=== PATIENT | female | born 1985 | race Caucasian/White ===

== ENCOUNTER 2021-12-25 18:12 | Emergency (ER) | payer OTHER, SELFPAY ==
[2021-12-25 18:18] VITALS: BP 128/75; PULSE 77; RESP 18; TEMP 36.6; O2SAT 100
--- NOTE | 2021-12-25 18:25 | ED.SKABFB ---
HPI - Skin/Abscess/Foreign Bdy General Chief complaint: Skin/Abscess/Foreign Body Stated complaint: spider bite on right wrist Time Seen by Provider: 12/25/21 18:26 Source: patient, RN notes reviewed and old records reviewed Mode of arrival: ambulatory Limitations: no limitations History of Present Illness HPI narrative: 36-year-old female who presents to [facility] with complaint of being bit on her right wrist yesterday at around 2am which actually woke her from sleep with pain. Patient has red raised lesion to right wrist area with surrounding 4cm X3cm red area with minimal warmth. Patient states that it was a pustule formation and she put PRID on it and now just red raised bump. Patient denies any fevers, chills or sweats. MD complaint: lesion Tetanus up to date: no Treatments prior to arrival: other (Prid salve and band-aide) Related Data Home Medications Medication Instructions Recorded Confirmed norgestimate 0.25 mg-ethinyl 1 tablet PO DAILY 12/25/21 12/25/21 estradiol 35 mcg tablet (Palmira) omeprazole 20 mg capsule,delayed 20 mg PO DAILY 12/25/21 12/25/21 release Allergies Allergy/AdvReac Type Severity Reaction Status Date / Time No Known Allergies Allergy Verified 12/25/21 18:30 Review of Systems Review of Systems: CONSTITUTIONAL: Denies fever, chills, or sweats. EYES: Denies visual changes, redness, or discharge. ENT: Denies rhinorrhea, congestion, sore throat, or otalgia. CARDIOVASCULAR: Denies chest pain, palpitations, or edema. RESPIRATORY: Denies cough or dyspnea. GASTROINTESTINAL: Denies abdominal pain, nausea, vomiting, or diarrhea. GENITOURINARY: Denies dysuria or hematuria. SKIN: Positive for red raised lesion to radial aspect of right arm with surrounding redness MUSCULOSKELETAL: Denies back pain, joint pain, or myalgia. NEUROLOGIC: Denies headache, numbness, or weakness. PSYCHIATRIC: Denies anxiety or depression. All systems reviewed & are unremarkable except as noted in HPI and below PMFSH Past Medical History Medical History (Updated 12/29/21 @ 16:00 by Shanna Monte NP) GERD (gastroesophageal reflux disease) Surgical History Surgical History (Updated 12/25/21 @ 18:28 by Shanna Monte NP) Previous section x3 Social History Social History (Updated 12/29/21 @ 15:59 by Shanna Monte NP) Smoking status: Unknown if ever smoked Alcohol intake: current Alcohol use details: social Substance use type: marijuana Last use: social Living arrangements: with family Gender identity (if verbalized by the patient): Female Comments At time of signature, agree with nursing past medical, surgical, social and family history. There is no relevant family history pertinent to the presenting complaint Exam Narrative: GENERAL: Well-appearing, well-nourished, and in no acute distress. HEAD: Normocephalic, atraumatic. EYES: PERRLA and EOMI. ENT: Nares clear, no rhinorrhea or epistaxis. Mucous membranes moist.TM's normal with good light reflex throat pink with no lesions or exudates or swelling NECK: Supple.no lymphadenopathy CHEST: Clear to auscultation. No respiratory distress.SAO2 100% on room air HEART: Regular rate and rhythm. No murmur heard. Normal peripheral pulses. ABDOMEN: Soft, nontender, nondistended, normal active bowel sounds. EXTREMITIES: Normal range of motion. No edema. SKIN: Warm, dry, no rash. 0,5cm red lesion to radial aspect of right wrist with [id number] area of redness surrounding lesion with warmth, NEURO: No focal deficits. Alert and oriented x3. Course Course Level of Care: Express Care Visit Vital Signs Vital signs: Vital Signs Temperature 36.6 C 12/25/21 18:18 Pulse Rate 77 12/25/21 18:18 Respiratory Rate 18 12/25/21 18:18 Blood Pressure 128/75 12/25/21 18:18 Pulse Oximetry 100 12/25/21 18:18 Oxygen Delivery Room Air 12/25/21 18:18 Temperature 36.6 C 12/25/21 18:18 Pulse Rate 77 12/25/21 18:18 R
--- NOTE | 2021-12-25 18:36 | ED_ITS ---
HPI - Skin/Abscess/Foreign Bdy General Chief complaint: Skin/Abscess/Foreign Body Stated complaint: spider bite on right wrist Time Seen by Provider: 12/25/21 18:26 Source: patient, RN notes reviewed and old records reviewed Mode of arrival: ambulatory Limitations: no limitations History of Present Illness MD complaint: lesion Related Data Home Medications Medication Instructions Recorded Confirmed norgestimate 0.25 mg-ethinyl 1 tablet PO DAILY 12/25/21 12/25/21 estradiol 35 mcg tablet (Palmira) omeprazole 20 mg capsule,delayed 20 mg PO DAILY 12/25/21 12/25/21 release Allergies Allergy/AdvReac Type Severity Reaction Status Date / Time No Known Allergies Allergy Verified 12/25/21 18:30 [facility] Past Medical History Medical History (Updated 12/25/21 @ 18:40 by Shanna Monte NP) GERD (gastroesophageal reflux disease) Surgical History Surgical History (Updated 12/25/21 @ 18:28 by Shanna Monte NP) Previous section x3 Course Vital Signs Vital signs: Vital Signs Temperature 36.6 C 12/25/21 18:18 Pulse Rate 77 12/25/21 18:18 Respiratory Rate 18 12/25/21 18:18 Blood Pressure 128/75 12/25/21 18:18 Pulse Oximetry 100 12/25/21 18:18 Oxygen Delivery Room Air 12/25/21 18:18 Temperature 36.6 C 12/25/21 18:18 Pulse Rate 77 12/25/21 18:18 Respiratory Rate 18 12/25/21 18:18 Blood Pressure 128/75 12/25/21 18:18 Pulse Oximetry 100 12/25/21 18:18 Oxygen Delivery Room Air 12/25/21 18:18 Discharge Plan Discharge Patient Disposition: Home, Self-Care Condition: Stable Instructions: Antibiotic Form Additional Instructions: Wash with antibacterial soap twice daily then apply mupirocin ointment to lesion 2x times daily watch for increasing infection--redness, swelling, drainage Tylenol or ibuprofen follow up with PCP in 7-10 days for a wound check recheck if develop fever, chills, increasing symptom Go to the ER if your symptoms become worse of if ANY new symptoms develop Antibiotic as prescribed if your symptoms persist, change or worsen significantly before you can contact your personal physician then please, without delay, go to the emergency department for further evaluation. Follow-up with PCP in 7-10 days or sooner if needed Follow up with PCP soon in regards to your blood pressure which is elevated above threshold for referral. Blood pressure above 120/80 may indicate pre- hypertension. Blood pressure 128/75 which is only minimally elevated systolically Prescriptions: New mupirocin 2 % ointment 1 applic topical BID Qty: 22 0RF Rx Instructions: To right arm cephalexin 500 mg capsule 500 mg PO Q12H Qty: 20 0RF No Action omeprazole 20 mg capsule,delayed release(DR/EC) 20 mg PO DAILY norgestimate-ethinyl estradiol [Palmira] 0.25-35 mg-mcg tablet 1 tablet PO DAILY Follow-up/Referrals: PHYSICIAN,SENIOR STORAGE ENGINEER [Primary Care Provider] - Time of Disposition: 18:44
[2021-12-25] MEDS: TETANUS,DIPHTHERIA,AC PERTUSSIS ADULT (0.5 ML) BOOSTRIX IM (18:42)
== END 2021-12-25 18:57 | disposition home or self-care (01) ==
PROVIDERS: Emergency Provider Registered Nurse
DX: L02.413 Cutaneous abscess of right upper limb (principal); K21.9 Gastro-esophageal reflux disease without esophagitis
CPT/HCPCS: 90471; 90715; 99212; G0463

== ENCOUNTER 2022-08-02 15:11 | Outpatient (CLI) | payer OTHER, SELFPAY ==
--- NOTE | 2022-08-02 | ECG_ITS ---
Measurements Intervals [place] Rate: 69 P: 42 HI: 126 QRS: 62 QRSD: 88 T: 18 QT: 422 QTc: 453 Interpretive Statements SINUS RHYTHM NONSPECIFIC T-WAVE ABNORMALITY NO PREVIOUS ECG AVAILABLE FOR COMPARISON Electronically Signed On 08-03-2022 17:58:32 CDT by Minna Dubon M.D.
--- NOTE | ~2022-08-02 | XR_ITS ---
EXAMINATION: XR chest 2V 08/02/2022 15:56 INDICATION: Presurgical evaluation PROCEDURE: 2 view chest COMPARISON: No prior studies for comparison. FINDINGS: The lungs are clear. The cardiomediastinal silhouette is within normal limits. There are no pleural effusions. There is no pneumothorax suspected. IMPRESSION: 1: NO ACUTE CARDIOPULMONARY DISEASE. Reviewed, dictated and finalized at location L.
== END 2022-08-02 15:12 | disposition home or self-care (01) ==
PROVIDERS: PCP Nurse Practitioner Family; Visit Provider Nurse Practitioner Family
DX: Z01.818 Encounter for other preprocedural examination (principal); R94.31 Abnormal electrocardiogram [ECG] [EKG]
CPT/HCPCS: 71046; 93005

== ENCOUNTER 2022-08-10 01:45 | Day surgery (SDC) | payer OTHER, SELFPAY ==
--- NOTE | 2022-08-02 14:46 | PC.NURSE ---
Report to the Outpatient Waiting Room, entrance under the green pavilion located off [facility], at time _0600_ on date _08/10/22_. Planned Procedure Time: _0730_. Time changes happen often and if your time is changed the preop area will call you the afternoon before. - You and your visitor will be asked to self-screen and do not enter if you have any COVID symptoms. - A mask is optional within the hospital at this time. Patients may have clear liquids (water, carbonated beverages, clear teas, apple juice) until 3 hours prior to surgery with a maximum of 20 ounces. - No food from midnight until time of surgery - Infants may have breast milk until 4 hours before surgery, formula 6 hours prior to surgery. - Children will be allowed to drink immediately following surgery. If applicable, please bring a bottle or sippy cup to assist with drinking. Juice, water, soda, and popsicles are readily available. For infants on formula, please bring formula the day of surgery. Pacifiers are allowed. Take the following medications with a SIP of water the morning of surgery: __none___ DO NOT STOP ANY OF YOUR OTHER PRESCRIPTION MEDICATIONS PRIOR TO SURGERY ?EXCEPT THE FOLLOWING Medications to discontinue per physician _supplements or vitamins 3 days prior Date to take last dose Please no make-up, nail israeli, hairspray, perfume, deodorant, or body powder the day of surgery. No jewelry (including any body piercings) or valuables the day of surgery, leave them at home. Please take a shower or bath the night before, or the morning of, surgery with an antibacterial soap. Wear comfortable, loose fitting clothing. Children are encouraged to wear pajamas. - Jewelry must be removed prior to entering the operating room. Rings and piercings that are not removed may be cut off. - The hospital will not accept responsibility for valuables. - Please leave all valuables, including medications, at home the day of surgery. If you are going home after surgery, a licensed carrier driver must drive you home. - NO public transportation without another adult if you receive anesthesia. - We recommend that an adult stay with you for 24 hours following discharge. - We also recommend that you do not drive, make important decision, drink alcoholic beverages, or take any drugs that were not prescribed by your health care provider for at least 24 hours after your discharge time. For Pediatric surgeries, we recommend two adults accompany the child home. Follow any additional instructions given to you from your surgeon. If you or anyone in your household have experienced Covid symptoms in the past week, please notify your surgeon or the nurse liaison at the phone number below for possible testing. Telephone instructions given to _patient__and asked if any additional questions and then verbalized understanding. Patient advised to call surgeon office or pre surgery nurse liaison [phone] if any additional questions.
[2022-08-02 14:52] VITALS: BMI 25.8
[2022-08-10 06:05] VITALS: BP 140/78; PULSE 65; RESP 16; TEMP 36.8; O2SAT 99; BMI 25.7
[2022-08-10] MEDS: LACTATED RINGERS 1,000 ML 30 ML IV CONT (06:35)
--- NOTE | 2022-08-10 07:11 | P.PNAN_ITS ---
Anes - Initial Pre Proc Eval Procedure: Operation Date: 08/10/22 07:30 Proposed Procedures p Excision Left Volar Wrist Ganglion Cyst - Koby Dumont MD Date/Time: 08/10/22 07:11 Surgeon: Koby Dumont MD Pre Op Diagnosis: left volar wrist ganglion cyst Patient Data Age: 37 Gender: F Height: 1.65 m Weight: 70.45 kg Allergies Allergy/AdvReac Type Severity Reaction Status Date / Time No Known Allergies Allergy Verified 08/10/22 06:15 Home Medications Medication Instructions Recorded Confirmed Type norgestimate 0.25 mg-ethinyl 1 tablet PO DAILY 12/25/21 08/02/22 History estradiol 35 mcg tablet (Palmira) omeprazole 20 mg capsule,delayed 20 mg PO DAILY 12/25/21 08/02/22 History release valacyclovir 500 mg tablet 500 mg PO DAILY 08/02/22 08/02/22 History Patient hx anesthesia problems: none Family hx anesthesia problems: none Results Review: All pre-operative results and documents have been reviewed as part of the pre- operative evaluation. [facility] Past Medical History Medical History (Updated 12/30/21 @ 00:00 by Laura Jaimes) GERD (gastroesophageal reflux disease) Surgical History Surgical History (Updated 12/25/21 @ 18:28 by Shanna Monte NP) Previous section x3 Social History Social History (Updated 12/29/21 @ 15:59 by Shanna Monte NP) Smoking status: Unknown if ever smoked Alcohol intake: current Drinks per week: 2 Alcohol use details: social Substance use: current Substance use type: marijuana Last use: 08/01/22 Living arrangements: with family Gender identity (if verbalized by the patient): Female Spiritual care concerns: No Anes - Eval Final PreProcedure Day of Procedure 08/10/22 07:11 Patient weight: normal Heart: regular rate and rhythm Lungs: clear to auscultation Airway: Mallampati scale class II Neurological: alert and oriented Last oral intake: >/= 8 hours ASA classification: II Emergent: no Anesthetic plan: proceed Anesthesia type and monitoring: general GIVS and standard monitoring Results Review: All pre-operative results and documents have been reviewed as part of the pre- operative evaluation. Informed Consent: The patient's anesthetic plan and its attendant risks and benefits were discussed with the patient/family/POA. Questions were solicited and answers provided to the satisfaction of the patient/family/POA.
[2022-08-10] MEDS: SCOPOLAMINE 1.5 MG PATCH TRANSDERM (07:20)
--- NOTE | 2022-08-10 07:21 | WPDHPUPDATE1 ---
History and Physical Update Update Date/Time: 08/10/22 07:21 History and Physical has been reviewed, including an updated exam of the patient. There are NO changes in the patient's condition. Risks, benefits, and alternatives have been discussed and questions answered. Patient agrees to proceed with procedure.
[2022-08-10] MEDS: LIDO 1%/EPINEPHRINE 1:100,000 50 ML VIAL 8 ML INFILTRATE (07:27)
[2022-08-10 08:20] VITALS: BP 98/68; PULSE 76; RESP 12; O2SAT 100
--- NOTE | 2022-08-10 08:20 | W.PM.PROC2 ---
Procedure Note - Detailed Date of Procedure 08/10/22 Pre-op Diagnosis left volar wrist ganglion cyst Post-op Diagnosis Same Procedure Performed Excision of right volar wrist ganglion cyst. Surgeon Koby Dumont MD Anesthesia MAC Indications pain and numbness. Findings Ganglion cyst. Description of Procedure The tender site on the volar wrist was marked with the consent of the patient. A palpable mass was not clearly evident today. She was then taken to the operating room where she was placed supine on the operating table. The left upper extremity was placed on a hand table. She was given IV sedation. The extremity was prepped and draped in usual fashion. The tourniquet was on but not utilized. The site was locally infiltrated with 1% lidocaine with epinephrine. Adequate anesthesia was obtained. The axial incision was made as marked running approximately 1 in. Dissection through the subcutaneous tissue and transverse palmar fascia was carefully performed with scissors. The ganglion cyst was identified. It appeared to lie transversely and was about 1 cm in length. Was approximately 3 mm in diameter. It was carefully dissected free and avulsed from its origin at the radial aspect. There was no significant bleeding. We did not see the median nerve but this ganglion lay almost directly over at . No additional soft tissue masses were noted. The skin was closed with interrupted 5 0 nylon. A small bandage with elastic wrap was applied she is discharged from the operating room in stable condition no prescriptions for pain medicine are being sent. She has ibuprofen at home. Estimated Blood Loss -1.0 Tourniquet Time 0 Drains No Packing No Pathology None sent Complications No immediate complications Condition Stable Disposition Same day
[2022-08-10 08:50] VITALS: BP 110/68; PULSE 64; RESP 12
== END 2022-08-10 09:05 | disposition home or self-care (01) ==
PROVIDERS: PCP Nurse Practitioner Family; Visit Provider Plastic Surgery
PROC: (CPT 25111; principal; 2022-08-10 07:30)
DX: M67.432 Ganglion, left wrist (principal); K21.9 Gastro-esophageal reflux disease without esophagitis; F12.90 Cannabis use, unspecified, uncomplicated
CPT/HCPCS: 25111; A9270; J1100; J1885; J2250; J2405; J2704; J3010; J7120